=== PATIENT | female | born 1995 | race Caucasian/White ===

== ENCOUNTER 2021-04-18 14:03 | Observation (INO) | payer MEDICAID ==
[~2021-04-18] VITALS: Ht 165.1 cm; Wt 113.4 kg
[2021-04-18 17:01] LABS: CLARITY URINE CLOUDY (CLEAR); COLOR URINE YELLOW (YELLOW); KETONES URINE NEGATIVE (NEGATIVE); LEUKOCYTE ESTERASE URINE 3+ (NEGATIVE); NITRITE URINE NEGATIVE (NEGATIVE); OCCULT BLOOD URINE NEGATIVE (NEGATIVE); PROTEIN URINE NEGATIVE (NEGATIVE); SPECIFIC GRAVITY URINE 1.014 (1.005-1.030); UROBILINOGEN URINE 0.2 E.U./dL (0.2-1.0)
[2021-04-18 17:26] LABS: *AMPHETAMINES SCREEN URINE NEGATIVE (NEGATIVE); *BARBITURATES SCREEN URINE NEGATIVE (NEGATIVE); CANNABINOID URINE SCREEN NEGATIVE (NEGATIVE); METHADONE URINE SCREEN NEGATIVE (NEGATIVE); OPIATES URINE SCREEN NEGATIVE (NEGATIVE); PHENCYCLIDINE URINE SCREEN NEGATIVE (NEGATIVE)
[2021-04-18 17:27] LABS: *BENZODIAZEPINES SCREEN URINE NEGATIVE (NEGATIVE); *COCAINE SCREEN URINE NEGATIVE (NEGATIVE)
[2021-04-18] MEDS ORDERED: PNV1TABL76 MT (18:35)
== END 2021-04-18 18:30 | disposition home or self-care (01) ==
LOC: 8 EST LDRP 14:03
PROVIDERS: ADMIT Obstetrics & Gynecology; ATTEND Obstetrics & Gynecology
DX: O26.893 Other specified pregnancy related conditions, third trimester (principal); R35.0 Frequency of micturition; O48.0 Post-term pregnancy; Z79.899 Other long term (current) drug therapy; Z3A.40 40 weeks gestation of pregnancy
CPT/HCPCS: 59025; 76805; 76817; 76818; 80305; 81003; G0378; 99281

== ENCOUNTER 2021-04-20 08:58 | Inpatient (IN) | payer MEDICAID ==
[~2021-04-20] VITALS: Ht 165.1 cm; Wt 122.5 kg
[~2021-04-20 08:58] MED LIST: PNV1TABL76 MT
[2021-04-20] MEDS ORDERED: NALOXONE HCL 0.4 MG/ML 1ML VIAL IM PRN (10:15)
[2021-04-20] MEDS ORDERED: BUTORPHANOL TARTRATE 2 MG/ML VIAL IV PRN (10:15)
[2021-04-20] MEDS ORDERED: CARBOPROST TROMETHAMINE 250 MCG/ML AMPUL IM PRN (10:15)
[2021-04-20] MEDS ORDERED: DEXT 5%/LR + PITOCIN 20UNITS/L 1,000 ML IV SCH ×2 (10:15→19:15)
[2021-04-20] MEDS ORDERED: METHYLERGONOVINE MALEATE 0.2 MG/ML IM PRN (10:15)
[2021-04-20] MEDS ORDERED: LIDOCAINE HCL 1% 20ML VIAL (Pyxis) INJ INFIL SCH (10:15)
[2021-04-20] MEDS ORDERED: AMPICILLIN 2GM in NS 100ML 100 ML IV NR (10:30)
[2021-04-20] MEDS: LACTATED RINGERS 1,000 ML IV SCH ×2 (10:39→17:03)
[2021-04-20 10:56] LABS: BASOPHILS % 0.3 % (0.0-2.0); EOSINOPHILS % 0.7 % (0.0-5.0); HEMATOCRIT. 28.1 % (36.0-48.0); HEMOGLOBIN. 9.4 g/dL (12.0-16.0); LYMPHOCYTES % 27.1 % (20.0-50.0); MEAN CORPUSCULAR HEMOGLOBIN 27.5 pg (28.0-32.0); MEAN CORPUSCULAR VOLUME 82.5 fL (81.0-99.0); MEAN PLATELET VOLUME 8.4 fl (7.4-10.4); MONOCYTES % 7.1 % (2.0-8.0); NEUTROPHILS % 64.8 % (40.0-76.0); PLATELET 301 x1000/uL (130-400); RED CELL DISTRIBUTION WIDTH 14.7 % (11.6-14.6)
[2021-04-20 10:58] LABS: CLARITY URINE CLEAR (CLEAR); COLOR URINE YELLOW (YELLOW); KETONES URINE NEGATIVE (NEGATIVE); LEUKOCYTE ESTERASE URINE TRACE (NEGATIVE); NITRITE URINE NEGATIVE (NEGATIVE); OCCULT BLOOD URINE NEGATIVE (NEGATIVE); PH URINE 6.5 (4.5-8.0); PROTEIN URINE NEGATIVE (NEGATIVE); SPECIFIC GRAVITY URINE 1.009 (1.005-1.030); UROBILINOGEN URINE 0.2 E.U./dL (0.2-1.0)
[2021-04-20 11:10] LABS: INR 0.9; PARTIAL THROMBOPLASTIN TIME 23.5 sec (23.4-31.0); PROTHROMBIN TIME 9.9 sec (9.6-11.0)
[2021-04-20 11:29] LABS: *AMPHETAMINES SCREEN URINE NEGATIVE (NEGATIVE); *BARBITURATES SCREEN URINE NEGATIVE (NEGATIVE); *BENZODIAZEPINES SCREEN URINE NEGATIVE (NEGATIVE); *COCAINE SCREEN URINE NEGATIVE (NEGATIVE); METHADONE URINE SCREEN NEGATIVE (NEGATIVE)
[2021-04-20 11:30] LABS: CANNABINOID URINE SCREEN NEGATIVE (NEGATIVE); OPIATES URINE SCREEN NEGATIVE (NEGATIVE); PHENCYCLIDINE URINE SCREEN NEGATIVE (NEGATIVE)
[2021-04-20 14:37] LABS: HEPATITIS B SURFACE ANTIGEN NEGATIVE
[2021-04-20] MEDS ORDERED: AMPICILLIN 1,000 MG in SODIUM CHLORIDE 0.9% 50 ML IV SCH (17:00)
[2021-04-20] MEDS ORDERED: RHO(D) IMMUNE GLOBULIN 300 MCG/SYR IM PRN (19:15)
[2021-04-20] MEDS ORDERED: OXYCODONE HCL/ACETAMINOPHEN 5/325MG TABLET PO PRN (19:15)
[2021-04-20] MEDS ORDERED: IBUPROFEN 400MG TABLET PO PRN (19:15)
[2021-04-20] MEDS: IBUPROFEN 800MG TABLET PO PRN (20:01)
[2021-04-20 21:50] VITALS: BP 108/63
[2021-04-20 22:30] VITALS: BP 124/61
[2021-04-20 23:00] VITALS: BP 120/61
[2021-04-21] MEDS: IBUPROFEN 800MG TABLET PO PRN ×2 (02:47→13:55)
[2021-04-21 04:00] VITALS: BP 93/46
[2021-04-21 08:30] VITALS: BP 110/41
[2021-04-21] MEDS ORDERED: FERROUS SULFATE 325MG TABLET PO SCH (09:00)
[2021-04-21] MEDS ORDERED: PRENATAL VIT/FE FUMARATE/FA TABLET PO SCH (09:00)
[2021-04-21 09:09] LABS: BASOPHILS % 0.3 % (0.0-2.0); EOSINOPHILS % 0.6 % (0.0-5.0); HEMOGLOBIN. 9.2 g/dL (12.0-16.0); LYMPHOCYTES % 22.7 % (20.0-50.0); MEAN CORPUSCULAR HEMOGLOBIN 27.3 pg (28.0-32.0); MEAN CORPUSCULAR VOLUME 82.5 fL (81.0-99.0); MEAN PLATELET VOLUME 8.6 fl (7.4-10.4); MONOCYTES % 5.7 % (2.0-8.0); NEUTROPHILS % 70.7 % (40.0-76.0); PLATELET 309 x1000/uL (130-400); RED BLOOD CELL COUNT 3.39 mill/uL (4.2-5.4); RED CELL DISTRIBUTION WIDTH 14.9 % (11.6-14.6)
[2021-04-21 17:40] VITALS: BP 104/49
[2021-04-21 20:00] VITALS: BP 120/79
[2021-04-22 04:00] VITALS: BP 114/61
[2021-04-22] MEDS ORDERED: FERR325T23 PO (07:01)
[2021-04-22] MEDS ORDERED: IBUP-2030 PO (07:01)
[2021-04-22 07:30] VITALS: BP 105/61
== END 2021-04-22 14:40 | disposition home or self-care (01) | DRG 560 ==
LOC: 8 EST LDRP 08:58 → OBSVTOIN 08:58 → 8 EST LDRP 09:01 → 8 EST A/PP 21:03
PROVIDERS: ADMIT Obstetrics & Gynecology; ATTEND Obstetrics & Gynecology
PROC: 10E0XZZ Delivery of Products of Conception, External Approach (ICD-10-PCS; principal; 2021-04-20)
DX: O77.0 Labor and delivery complicated by meconium in amniotic fluid (principal); D64.9 Anemia, unspecified; Z20.822 Contact with and (suspected) exposure to COVID-19; Z37.0 Single live birth; Z3A.39 39 weeks gestation of pregnancy; O99.02 Anemia complicating childbirth
CPT/HCPCS: 36415; 80305; 81003; 85025; 86592; 86703; 86762; 86850; 86900; 87340; 87426; J0290; J0595; J2590; J7120

== ENCOUNTER 2023-05-22 19:11 | Observation (INO) | payer OTHER ==
[~2023-05-22] VITALS: Ht 165.1 cm; Wt 127.0 kg
[~2023-05-22 19:11] MED LIST changes: +FERR325T23 PO; +IBUP-2030 PO
== END 2023-05-22 23:35 | disposition home or self-care (01) ==
LOC: 8 EST LDRP 19:11
PROVIDERS: ADMIT Obstetrics & Gynecology; ATTEND Obstetrics & Gynecology
DX: O36.8130 Decreased fetal movements, third trimester, not applicable or unspecified (principal); Z3A.37 37 weeks gestation of pregnancy
CPT/HCPCS: 59025; 99281; 76818; 76805; G0378 ×2